=== PATIENT | male | born 1960 | race Caucasian/White ===

== ENCOUNTER 2020-05-25 20:48 | Inpatient (IN) | payer OTHER ==
[~2020-05-25] VITALS: Ht 193 cm; Wt 77.1 kg
[~2020-05-25 20:48] MED LIST: BUSP10 PO; CITA20 PO; HEARTBURN TREAT15 MG PO
[2020-05-25] MEDS ORDERED: NEURONTIN300 MG PO (21:03)
[2020-05-25] MEDS ORDERED: HYDROCODONE-AC1 EAC9 PO (21:03)
[2020-05-25] MEDS ORDERED: ASPI325 PO (21:04)
[2020-05-25 23:17] LABS: BASOPHILS ABSOLUTE AUTO 0.03 K/mm3 (0.00-0.23); BASOPHILS PERCENT AUTO 0 % (0-2); EOSINOPHILS ABSOLUTE AUTO 0.01 K/mm3 (0.00-0.68); EOSINOPHILS PERCENT AUTO 0 % (0-6); Hematocrit 39.1 % (37.0-53.0); Hemoglobin 13.3 g/dL (13.5-17.5); IMMATURE GRAN ABSOLUTE AUTO 0.08 K/mm3 (0.00-0.10); IMMATURE GRAN PERCENT AUTO 1 % (0-1); LYMPHOCYTES ABSOLUTE AUTO 0.81 K/mm3 (0.84-5.20); LYMPHOCYTES PERCENT AUTO 5 % (21-46); MONOCYTES ABSOLUTE AUTO 1.83 K/mm3 (0.16-1.47); MONOCYTES PERCENT AUTO 10 % (4-13); Mean Corpuscular HGB 34.4 pg (26.0-34.0); Mean Corpuscular Volume 101 fL (80-100); Mean Platelet Volume 9.5 fL (9.1-12.4); NEUTROPHILS ABSOLUTE AUTO 14.88 K/mm3 (1.96-9.15); NEUTROPHILS PERCENT AUTO 84 % (41-73); Platelet Count 197 K/mm3 (150-400); RDW Coefficient Variation 11.5 % (11.7-14.2); RDW Standard Deviation 43.1 fL (35.1-46.3); Red Blood Cell Count 3.87 M/mm3 (4.30-5.90); White Blood Cell Count 17.64 K/mm3 (4.00-11.30)
[2020-05-25 23:33] LABS: International Normalized Ratio 0.97; Prothrombin Time Results 10.4 Sec (9.7-11.5)
[2020-05-25 23:37] LABS: Alanine Aminotransfer (ALT/SGP 13 U/L (12-78); Albumin/Globulin Ratio 0.8 (0.8-1.8); Alk Phos 80 U/L (50-136); Anion Gap 9 mmol/L (6-16); Aspartate Aminotrans (AST/SGOT 12 U/L (12-37); Bilirubin, Total 0.6 mg/dL (0.1-1.0); Blood Urea Nitrogen 13 mg/dL (8-24); Bun/Creatinine Ratio 22.5 (12.0-20.0); CO2, Blood 24 mmol/L (21-32); Calcium, Blood 9.6 mg/dL (8.5-10.1); Chloride, Blood 101 mmol/L (98-108); Creatinine, Blood 0.58 mg/dL (0.60-1.20); Globulin, Blood 3.9 g/dL (2.2-4.0); Glomerular Filtration Rate >60 (60-); Glucose, Blood 109 mg/dL (70-99); Potassium, Blood 4.1 mmol/L (3.5-5.5); Sodium, Blood 134 mmol/L (136-145); Total Protein, Blood 6.9 g/dL (6.4-8.2); Troponin I <0.015 ng/mL (0.000-0.040)
[2020-05-26 00:08] LABS: Source, Urine Clean Catch
[2020-05-26 00:12] LABS: Appearance, Urine Clear (Clear); Bilirubin, Urine Neg (Neg); Blood, Urine Neg (Neg); Color, Urine Amber (P-Yellow); Glucose Qualitative, Urine Neg (Neg); Ketones, Urine 2+ (Neg); Leukocyte Esterase, Urine Neg (Neg); Nitrite, Urine Neg (Neg); Protein, Urine 1+ (Neg); Specific Gravity, Urine 1.025 (1.003-1.022); Urobilinogen, Urine 2+ (Normal)
[2020-05-26 01:04] LABS: Adenovirus Not Detected (NOT DETECT); Bordetella pertussis Not Detected (NOT DETECT); Chlamydophila pneumoniae Not Detected (NOT DETECT); Coronavirus 229E Not Detected (NOT DETECT); Coronavirus HKU1 Not Detected (NOT DETECT); Coronavirus NL63 Not Detected (NOT DETECT); Coronavirus OC43 Not Detected (NOT DETECT); Human Metapneumovirus Not Detected (NOT DETECT); Human Rhinovirus/Enterovirus Not Detected (NOT DETECT); Influenza A/2009-H1 Not Detected (NOT DETECT); Influenza A/H1 Not Detected (NOT DETECT); Influenza A/H3 Not Detected (NOT DETECT); Influenza B Not Detected (NOT DETECT); Mycoplasma pneumoniae Not Detected (NOT DETECT); Parainfluenza Virus 1 Not Detected (NOT DETECT); Parainfluenza Virus 2 Not Detected (NOT DETECT); Parainfluenza Virus 3 Not Detected (NOT DETECT); Parainfluenza Virus 4 Not Detected (NOT DETECT); Respiratory Syncytial Virus Not Detected (NOT DETECT); SARS-Cov-2 (COVID-19), BioFire Not Detected (NOT DETECT)
--- NOTE | 2020-05-26 05:14 | NUR ---
SUMMARY PT ARRIVED TO FLOOR IN NO DISTRESS. PT STATES HE HAS BEEN BEDREST W/ WHEELCHAIR USE FOR PAST 3 WEEKS. PT STATES HIS NEUROPATHY HAS INCREASED THIS LAST MONTH. PT CURRENTLY BIOX IS >90% ON ROOM AIR. PT DOES GET SOB W/ EXERTION. PT USING URINAL ON OWN. PT CURRENTLY WATCHING TV AND BREATHING EASY. CALL LIGHT IN REACH.
[2020-05-26 11:14] LABS: BASOPHILS ABSOLUTE AUTO 0.02 K/mm3 (0.00-0.23); BASOPHILS PERCENT AUTO 0 % (0-2); EOSINOPHILS ABSOLUTE AUTO 0.02 K/mm3 (0.00-0.68); EOSINOPHILS PERCENT AUTO 0 % (0-6); Hematocrit 34.6 % (37.0-53.0); Hemoglobin 11.7 g/dL (13.5-17.5); IMMATURE GRAN ABSOLUTE AUTO 0.07 K/mm3 (0.00-0.10); IMMATURE GRAN PERCENT AUTO 0 % (0-1); LYMPHOCYTES ABSOLUTE AUTO 1.39 K/mm3 (0.84-5.20); LYMPHOCYTES PERCENT AUTO 8 % (21-46); MONOCYTES PERCENT AUTO 9 % (4-13); Mean Corpuscular HGB 34.8 pg (26.0-34.0); Mean Corpuscular HGB Conc 33.8 g/dL (31.5-36.5); Mean Corpuscular Volume 103 fL (80-100); Mean Platelet Volume 9.7 fL (9.1-12.4); NEUTROPHILS ABSOLUTE AUTO 14.02 K/mm3 (1.96-9.15); NEUTROPHILS PERCENT AUTO 82 % (41-73); Platelet Count 161 K/mm3 (150-400); RDW Coefficient Variation 11.6 % (11.7-14.2); RDW Standard Deviation 43.9 fL (35.1-46.3); Red Blood Cell Count 3.36 M/mm3 (4.30-5.90); White Blood Cell Count 17.02 K/mm3 (4.00-11.30)
[2020-05-26 11:34] LABS: Alanine Aminotransfer (ALT/SGP 7 U/L (12-78); Albumin, Blood 2.4 g/dL (3.4-5.0); Albumin/Globulin Ratio 0.7 (0.8-1.8); Alk Phos 64 U/L (50-136); Anion Gap 9 mmol/L (6-16); Aspartate Aminotrans (AST/SGOT 8 U/L (12-37); Bilirubin, Total 0.4 mg/dL (0.1-1.0); Blood Urea Nitrogen 12 mg/dL (8-24); Bun/Creatinine Ratio 22.3 (12.0-20.0); CO2, Blood 24 mmol/L (21-32); Chloride, Blood 104 mmol/L (98-108); Creatinine, Blood 0.54 mg/dL (0.60-1.20); Globulin, Blood 3.3 g/dL (2.2-4.0); Glomerular Filtration Rate >60 (60-); Glucose, Blood 105 mg/dL (70-99); Potassium, Blood 3.5 mmol/L (3.5-5.5); Sodium, Blood 137 mmol/L (136-145); Total Protein, Blood 5.7 g/dL (6.4-8.2)
--- NOTE | 2020-05-26 17:02 | NUR ---
SHIFT SUMMARY PT HAD SOFT TOUCH CALL LIGHT IN REACH. USES APPROPRIOTELY. SOCIAL SERVICE CONSULT PLACED & TAX EXPERT UPDATED ON PT POSSIBLE NEED FOR SENIOR CORE JAVA DEVELOPER CARE PER SISTER, HONG. OT & PT ORDERED. PT CONTINUES TO HAVE PROFOUND WEAKNESS TO ALL EXTREMETIES. REPOSITIONED T/O DAY. PT CONT WITH URINAL AT BEDSIDE. NO BM THIS SHIFT. SUPERVISOR SHUTTLE PREPARATION, DR. LYLE IN TO SEE PT. SPUTUM SAMPLE COLLECTED. FLUTTER VALVE GIVEN TO PT. REPEAT CHEST XR TO BE DONE TOMORROW FOR COMPARISON. TB SEND OUT BLOOD SAMPLES TAKEN & SENT. PT COOPERATIVE AND POLITE T/O SHIFT. NO OTHER CHANGES IN ASSESSMENT AT THIS TIME. VS REVIEWED. SLIGHT TEMP T/O DAY 99-100.0. WILL CONINUE TO MONITOR UNTIL TURNOVER IS COMPLETE.
[2020-05-27 02:47] LABS: Vancomycin, Trough 8.9 ug/mL (5.0-10.0)
--- NOTE | 2020-05-27 05:14 | NUR ---
SUMMARY: PT A/OX4, USES SOFT TOUCH CALL LIGHT APPROPRIATELY AND SPECIFIES NEEDS. HE'S PROFOUNDLY WEAK TO ALL EXT'S AND NONAMBULATORY R/T NEUROPATHY. TURN SCHEDULE MAINTAINED AND PT USES URINAL INDEPENDENTLY IN BED. IV AT TKVO BETWEEN MULTIPLE ABX'S RECIEVED T/O NOCTE. PULM CONSULTING, REPEAT CXR TODAY FOR COMPARISON AND TB SEND OUT LABS PENDING. RESPS E/U ON RA AND NO S/S SOB OR RESP DISTRESS THIS SHIFT. PT DENIED PAIN/COMPLAINTS. VSS/AFEBRILE, NO ACUTE CHANGES. PT WILL LIKELY NEED GROUP HOME CARE AND MAY D/C TO [facility]. WCTM AND REPORT TO DAY RN.
--- NOTE | 2020-05-27 17:22 | NUR ---
SHIFT SUMMARY PT A/O X4; PLEASANT AND COOPERATIVE WITH CARE. 2 PERSON MAX ASSIST. MOSTLY IMMOBILE AT BASELINE. USES THE URINAL IN THE BED AND THE BED BOYLE. GETS INTO PERSONAL WHEELCHAIR USING A SLIDING BOARD. SISTER AT BEDSIDE. USES A SOFT TOUCH CALL LIGHT AND CALLS APPROPRIATELY. VSS; DAMON.
[2020-05-27 19:44] LABS: Vancomycin, Trough 19.7 ug/mL (5.0-10.0)
--- NOTE | 2020-05-28 05:25 | NUR ---
SUMMARY: A/OX4, SPECIFIES NEEDS W/SOFT TOUCH CALL LIGHT AND COOPERATIVE W/CARE. HE'S A 1-2P MAX REPOSITION IN BED W/PROFOUND WEAKNESS PERSISTING. PT/OT WORKED W/HIM DURING DAY SHIFT USING SLIDE BOARD TO T/F TO W/C BUT HE WASN'T OOB THIS SHIFT. HE USES URINAL IN BED AND ATTEMPTED TO USE BEDPAN. LINEN, GOWN AND ATTENDS CHANGED PRN FOR SOME SPILLING OF URINE WHILE USING URINAL INDEPENDENTLY. HE DENIED PAIN, SOB, RESP DISTRESS AND ALL OTHER COMPLAINTS. PT REMAIN IN ISO FOR R/O TB. IV AT TKVO AND MULTIPLE IV ABX WERE RECIEVED T/O NOCTE. RESPS E/U ON RA W/SPO2 WNL. NO ACUTE CHANGES, VSS AND AFEBRILE. WCTM AND REPORT TO DAY RN.
[2020-05-28 05:43] LABS: BASOPHILS ABSOLUTE AUTO 0.01 K/mm3 (0.00-0.23); BASOPHILS PERCENT AUTO 0 % (0-2); EOSINOPHILS ABSOLUTE AUTO 0.29 K/mm3 (0.00-0.68); EOSINOPHILS PERCENT AUTO 3 % (0-6); Hematocrit 32.1 % (37.0-53.0); IMMATURE GRAN ABSOLUTE AUTO 0.03 K/mm3 (0.00-0.10); IMMATURE GRAN PERCENT AUTO 0 % (0-1); LYMPHOCYTES ABSOLUTE AUTO 1.52 K/mm3 (0.84-5.20); LYMPHOCYTES PERCENT AUTO 17 % (21-46); MONOCYTES ABSOLUTE AUTO 1.25 K/mm3 (0.16-1.47); MONOCYTES PERCENT AUTO 14 % (4-13); Mean Corpuscular HGB 34.6 pg (26.0-34.0); Mean Corpuscular HGB Conc 34.3 g/dL (31.5-36.5); Mean Corpuscular Volume 101 fL (80-100); Mean Platelet Volume 10.3 fL (9.1-12.4); NEUTROPHILS ABSOLUTE AUTO 5.89 K/mm3 (1.96-9.15); NEUTROPHILS PERCENT AUTO 66 % (41-73); Platelet Count 179 K/mm3 (150-400); RDW Coefficient Variation 11.4 % (11.7-14.2); RDW Standard Deviation 42.1 fL (35.1-46.3); Red Blood Cell Count 3.18 M/mm3 (4.30-5.90); White Blood Cell Count 8.99 K/mm3 (4.00-11.30)
[2020-05-28 06:03] LABS: Anion Gap 6 mmol/L (6-16); Blood Urea Nitrogen 9 mg/dL (8-24); Bun/Creatinine Ratio 18.4 (12.0-20.0); CO2, Blood 25 mmol/L (21-32); Calcium, Blood 8.8 mg/dL (8.5-10.1); Chloride, Blood 104 mmol/L (98-108); Creatinine, Blood 0.49 mg/dL (0.60-1.20); Glomerular Filtration Rate >60 (60-); Glucose, Blood 96 mg/dL (70-99); Potassium, Blood 3.5 mmol/L (3.5-5.5); Sodium, Blood 135 mmol/L (136-145)
[2020-05-28 11:37] LABS: Vancomycin, Trough 19.3 ug/mL (5.0-10.0)
[2020-05-28 15:07] LABS: QUANTIFERON MITOGEN VALUE 5.74 IU/mL (.); QUANTIFERON NIL VALUE 0.11 IU/mL (.); QUANTIFERON TB2 AG VALUE 0.11 IU/mL (.); QUANTIFERON-TB GOLD PLUS Negative (Negative)
--- NOTE | 2020-05-28 18:19 | NUR ---
SHIFT SUMMARY PT A/O X4 AND PLEASANT. HE IS A MAX 1/2 ASSIST TO TURN OR GET UP TO HIS WHEELCHAIR. HE DID NOT GET UP TO HIS WHEELCHAIR TODAY. USES THE URINAL IN BED AND THE BEDPAN. FREQUENT LOOSE BM'S TODAY. IMMODIUM ORDERED. PULMONARY CONSULT TODAY. NPO AT MIDNIGHT FOR BRONCOSCOPY TOMORROW. VSS; DAMON.
--- NOTE | 2020-05-29 12:51 | NUR ---
05/29/20 1251 Wiliam Leija 3-LEAD EKG REVIEWED WITH PHYSICIAN PRIOR TO START OF PROCEDURE.Patient to ENDO 2History, Chart, Medications and Allergies reviewed before start of procedure.MONITOR INTACT WITH CONTINUOUS PULSE OXIMETRY AND INTERMITTENT BP.O2 VIA N/C INTACT THROUGHOUT SEDATION/PROCEDURE.
--- NOTE | 2020-05-29 14:09 | NUR ---
1400- DR ROMAN CALLED TO NOTIFY HIM THAT PT O2SAT 88-90% ON ROOM AIR, AFTER DUONEB. PER DR ROMAN, OKAY FOR PT TO BE ON O2.02 AT 2LNC PT SATING LOW 90'S. PT ABLE TO SUCTION SELF AND CLEAR OWN AIRWAY W/O SUCTION. PT TRANSPORTED VIA GURNEY BACK TO MEDICAL FLOOR.
--- NOTE | 2020-05-29 19:24 | NUR ---
SHIFT SUMMARY: PATIENT A&O X4; CALM AND COOPERATIVE WITH CARE. MEDICATED FOR PAIN PER EMAR. BRONCHOSCOPY TODAY; PATIENT TOLERATED WELL; VSS; PT ON ROOM AIR. R/O TUBERCULOSIS COMPLETE. IV ABX CONTINUING. REPORT GIVEN TO ONCOMING RN.
--- NOTE | 2020-05-30 03:54 | NUR ---
SHIFT SUMMARY PATIENT HAD NO ACUTE CHANGES OBSERVED. AXOX 4 AND BEDREST. USES URINAL AND BED BOYLE. PIV REMAINS INTACT. IV ABXS INFUSED. VSS/AFEBRILE. DENIES PAIN, SOB, AND N/V. TAKES MEDICATION WHOLE WITH WATER. COOPERATIVE WITH CARE. CALL LIGHT IN REACH. BED IN LOWEST POSITION. WILL CONTINUE TO MONITOR UNTIL DAY SHIFT NURSE ASSUMES CARE.
[2020-05-30 08:20] LABS: Hematocrit 33.7 % (37.0-53.0); Hemoglobin 11.6 g/dL (13.5-17.5); Mean Corpuscular HGB 34.5 pg (26.0-34.0); Mean Corpuscular HGB Conc 34.4 g/dL (31.5-36.5); Mean Corpuscular Volume 100 fL (80-100); Mean Platelet Volume 9.3 fL (9.1-12.4); Platelet Count 232 K/mm3 (150-400); RDW Coefficient Variation 11.4 % (11.7-14.2); RDW Standard Deviation 41.8 fL (35.1-46.3); Red Blood Cell Count 3.36 M/mm3 (4.30-5.90); White Blood Cell Count 8.15 K/mm3 (4.00-11.30)
[2020-05-30 08:33] LABS: Anion Gap 7 mmol/L (6-16); Blood Urea Nitrogen 9 mg/dL (8-24); Bun/Creatinine Ratio 17.6 (12.0-20.0); CO2, Blood 26 mmol/L (21-32); Chloride, Blood 104 mmol/L (98-108); Creatinine, Blood 0.51 mg/dL (0.60-1.20); Glomerular Filtration Rate >60 (60-); Glucose, Blood 93 mg/dL (70-99); Potassium, Blood 3.8 mmol/L (3.5-5.5); Sodium, Blood 137 mmol/L (136-145)
[2020-05-30 11:41] LABS: Vancomycin, Trough 22.5 ug/mL (5.0-10.0)
--- NOTE | 2020-05-30 19:32 | NUR ---
SHIFT SUMMARY: NO ACUTE CHANGES TO REPORT THIS SHIFT. PT A&O; CALM AND COOPERATIVE WITH CARE. MEDICATED FOR BACK PAIN PER EMAR. PT ON BEDREST; BEDPAN FOR BM; URINAL FOR VOIDING. PT/OT FOLLOWING. IV ABX CONTINUING. REPORT GIVEN TO ONCOMING RN.
--- NOTE | 2020-05-31 06:20 | NUR ---
SHIFT SUMMARY PT IS A 60 Y/O MALE, ADMITTED FOR PNA. HE IS A&O X 4, ON BEDREST D/T INCREASED WEAKNESS. NO COMPLAINTS OF PAIN, NAUSEA OR SOB DURING THE NIGHT. VITAL SIGNS STABLE. PT SLEPT WELL THROUGH THE NIGHT. NO ACUTE CHANGES IN PT CONDITION NOTED. WILL CONTINUE TO MONITOR AND TREAT PER EMAR UNTIL HAND OFF TO DAY SHIFT RN.
--- NOTE | 2020-05-31 16:59 | NUR ---
Shift Summary A/Ox4, pleasant and cooperative with care. Pt states baseline wheelchair for mobility. Speech evaluation completed today (see new orders). Medicated x 1 for pain with good relief. Independent with urinal at bedside, calls appropriately for needs. Appetite is great. Lung sounds are clear on R side, diminished on all left lobes. Breathing is equal and unlabored. No new concerns. Will continue to monitor.
[2020-06-01 05:55] LABS: Vancomycin, Trough 13.6 ug/mL (5.0-10.0)
--- NOTE | 2020-06-01 06:00 | NUR ---
SHIFT SUMMARY PT IS A 60 Y/O MALE, ADMITTED FOR PNA AND WEAKNESS. HE IS A&O X 4, ON BEDREST. CURRENTLY AWAITING RESULTS ON RECENT BRONCHOSCOPY SPECIMENS. PT WAS MEDICATED ONCE FOR BACK PAIN WITH PRN OXYCODONE. NO COMPLAINTS OF NAUSEA OR SOB. VITAL SIGNS STABLE. PT SLEPT WELL THROUGH THE NIGHT. NO ACUTE CHANGES IN PT CONDITION NOTED. WILL CONTINUE TO MONITOR AND TREAT PER EMAR UNTIL HAND OFF TO DAY SHIFT RN.
--- NOTE | 2020-06-01 15:51 | NUR ---
Shift Summary Patient c/o of possibly aspirating with water and coffee. When assessing how patient drinks these two, it appears patient was using straws. Offered to try nectar thick liquids, patient declined. Patient did not c/o aspiration with other thin liquids (milk, ensure, etc..) when not using straw. Recommended no straw for any thin liquids. Will pass this on to oncoming RN so this can be relayed to speech therapist for further evaluation. Dr. Holliday is aware of patient's complaint. L/S audible and clear throughout which is an improvement from yesterday. No other acute changes, will continue to monitor.
--- NOTE | 2020-06-02 05:54 | NUR ---
SHIFT SUMMARY PT IS A 60 Y/O MALE, ADMITTED FOR PNA AND CURRENTLY AWAITING RESULTS OF A BRONCHOSCOPY BIOPSY. HE IS A&O X 4, WITH EXTREME WEAKNESS, AND CURRENTLY ON BEDREST. HE WAS MEDICATED ONCE AT HS FOR BACK PAIN WITH PRN PERCOCET. NO C/O NAUSEA OR SOB. VITAL SIGNS STABLE. PT SLEPT WELL THROUGH THE NIGHT. NO ACUTE CHANGES IN PT CONDITION NOTED. WILL CONTINUE TO MONITOR AND TREAT PER EMAR UNTIL HAND OFF TO DAY SHIFT RN.
[2020-06-02] MEDS ORDERED: GUAI600T33 PO (10:58)
[2020-06-02] MEDS ORDERED: Nicoderm Cq1 EAC1 TOP (10:58)
[2020-06-02] MEDS ORDERED: AMOCLA500 PO (10:58)
[2020-06-02] MEDS ORDERED: Florastor250 MG PO (11:00)
== END 2020-06-02 14:35 | DRG 871 ==
LOC: ER 20:48 → MEDS 05-26 03:04 → ENPENDDIS 06-02 10:42 → MEDS 06-02 14:35
PROVIDERS: Internal Medicine; Internal Medicine Critical Care Medicine; Pharmacist; Physician Assistant; ADMIT Internal Medicine
PROC: 0B978ZX Drainage of Left Main Bronchus, Via Natural or Artificial Opening Endoscopic, Diagnostic (ICD-10-PCS; principal; 2020-05-29 12:30)
DX: A41.9 Sepsis, unspecified organism (principal); J96.01 Acute respiratory failure with hypoxia; J18.8 Other pneumonia, unspecified organism; E87.1 Hypo-osmolality and hyponatremia; Z20.828 Contact with and (suspected) exposure to other viral communicable diseases; K21.9 Gastro-esophageal reflux disease without esophagitis; F17.210 Nicotine dependence, cigarettes, uncomplicated; G62.1 Alcoholic polyneuropathy; Z79.82 Long term (current) use of aspirin; F10.21 Alcohol dependence, in remission; Z99.3 Dependence on wheelchair; J43.9 Emphysema, unspecified; D63.8 Anemia in other chronic diseases classified elsewhere
CPT/HCPCS: 0202U; 36415; 71045; 71260; 80048; 80053; 80202; 82140; 83605; 83880; 84484; 85025; 85027; 85610; 85730; 86480; 87040; 87070; 87086; 87205; 88108; 88312; 92610; 93005; 93010; 94640; 94667; 94760; 96361; 96365; 96366; 97110; 97112; 97161; 97166; 97530; 97535; 99285-25; A9270; A9270-GY; J0171; J0295; J0456; J0696; J1644; J2250; J3010; J3370; J7050; J7120; Q9967; U0003

== ENCOUNTER → 2020-06-13 | Outpatient (CLI) | payer OTHER ==
[~2020-06-13] MED LIST changes: +ACET325 PO; +ALPHA LIPOIC ACID PO; +AMIT50 PO; +AMOCLA500 PO; +ASPI325 PO; +Acetyl L-Carni500 MG PO; +DOCU100 PO; +Florastor250 MG PO; +GUAI600T33 PO; +HYDROCODONE-AC1 EAC9 PO; +IPRAT-ALBUT 0.5-3 ML INH; +NEURONTIN300 MG PO; +Nicoderm Cq1 EAC1 TOP; +VISBIOME PROBIOTIC PO; +VITAMIN D5000 UNIT PO; +VITAMIN E-20200 UNIT PO; +Vitamin B Comple1 EA PO
[2020-06-15 10:08] LABS: HIV SCREEN 4TH GENERATION WRFX Non Reactive (Non Reactive)
[2020-06-17 03:08] LABS: METHYLMALONIC ACID, SERUM 96 nmol/L (0-378)
[2020-06-17 18:07] LABS: HEPATITIS C QUANTITATION HCV Not Detected IU/mL (.)
[2020-06-22 17:10] LABS: ANA DIRECT Negative (Negative); ANTIMYELOPEROXIDASE (MPO) ABS <9.0 U/mL (0.0-9.0); ANTIPROTEINASE 3 (PR-3) ABS <3.5 U/mL (0.0-3.5); ATYPICAL PANCA <1:20 titer (Neg:<1:20); CYTOPLASMIC (C-ANCA) <1:20 titer (Neg:<1:20); PERINUCLEAR (P-ANCA) <1:20 titer (Neg:<1:20)
== END | disposition home or self-care (01) ==
LOC: EDSTATUS 09:21 → LAB 17:34 → LAB UVN 17:34
PROVIDERS: Student in an Organized Health Care Education/Training Program
DX: G62.1 Alcoholic polyneuropathy (principal)
CPT/HCPCS: 83520; 83883; 83921; 85651; 86140; 86256; 87389; 87522

== ENCOUNTER 2020-07-03 21:58 | Inpatient (IN) | payer OTHER ==
[~2020-07-03] VITALS: Ht 188 cm; Wt 72.8 kg
[~2020-07-03 21:58] MED LIST changes: -ACET325 PO; -ALPHA LIPOIC ACID PO; -AMIT50 PO; -Acetyl L-Carni500 MG PO; -DOCU100 PO; -IPRAT-ALBUT 0.5-3 ML INH; -VISBIOME PROBIOTIC PO; -VITAMIN D5000 UNIT PO; -VITAMIN E-20200 UNIT PO; -Vitamin B Comple1 EA PO
[2020-07-03 22:20] LABS: Calcium, Ionized (POC) 1.25 mmol/L (1.10-1.46); Chloride (POC) 92 mmol/L (98-108); Creatinine (POC) 0.5 mg/dL (0.8-1.3); Glucose (ISTAT POC) 154 mg/dL (70-99); Hemoglobin (POC) 15.6 g/dL (13.5-17.5); Potassium (POC) 4.3 mmol/L (3.5-5.5); Sodium (POC) 128 mmol/L (135-148); Total CO2 (POC) 25 mmol/L (21-32)
[2020-07-03 22:28] LABS: BASOPHILS ABSOLUTE AUTO 0.02 K/mm3 (0.00-0.23); BASOPHILS PERCENT AUTO 0 % (0-2); EOSINOPHILS ABSOLUTE AUTO 0.14 K/mm3 (0.00-0.68); EOSINOPHILS PERCENT AUTO 1 % (0-6); Hematocrit 43.7 % (37.0-53.0); Hemoglobin 14.3 g/dL (13.5-17.5); IMMATURE GRAN ABSOLUTE AUTO 0.06 K/mm3 (0.00-0.10); IMMATURE GRAN PERCENT AUTO 1 % (0-1); LYMPHOCYTES ABSOLUTE AUTO 1.66 K/mm3 (0.84-5.20); LYMPHOCYTES PERCENT AUTO 13 % (21-46); MONOCYTES ABSOLUTE AUTO 1.13 K/mm3 (0.16-1.47); MONOCYTES PERCENT AUTO 9 % (4-13); Mean Corpuscular HGB 32.2 pg (26.0-34.0); Mean Corpuscular HGB Conc 32.7 g/dL (31.5-36.5); Mean Corpuscular Volume 98 fL (80-100); Mean Platelet Volume 9.4 fL (9.1-12.4); NEUTROPHILS PERCENT AUTO 76 % (41-73); Platelet Count 254 K/mm3 (150-400); RDW Coefficient Variation 11.5 % (11.7-14.2); RDW Standard Deviation 42.3 fL (35.1-46.3); Red Blood Cell Count 4.44 M/mm3 (4.30-5.90); White Blood Cell Count 12.81 K/mm3 (4.00-11.30)
[2020-07-03 22:38] LABS: PO2 Arterial 398 mmHg (80-100); pH Blood Arterial 7.25 (7.35-7.45)
[2020-07-03 22:46] LABS: Alanine Aminotransfer (ALT/SGP 12 U/L (12-78); Albumin, Blood 3.1 g/dL (3.4-5.0); Albumin/Globulin Ratio 0.7 (0.8-1.8); Alk Phos 116 U/L (50-136); Anion Gap 4 mmol/L (6-16); Aspartate Aminotrans (AST/SGOT 25 U/L (12-37); Bilirubin, Total 0.4 mg/dL (0.1-1.0); Blood Urea Nitrogen 10 mg/dL (8-24); Bun/Creatinine Ratio 21.9 (12.0-20.0); CO2, Blood 28 mmol/L (21-32); Calcium, Blood 9.2 mg/dL (8.5-10.1); Chloride, Blood 96 mmol/L (98-108); Creatinine, Blood 0.46 mg/dL (0.60-1.20); Globulin, Blood 4.3 g/dL (2.2-4.0); Glomerular Filtration Rate >60 (60-); Glucose, Blood 158 mg/dL (70-99); Potassium, Blood 4.3 mmol/L (3.5-5.5); Sodium, Blood 128 mmol/L (136-145); Total Protein, Blood 7.4 g/dL (6.4-8.2); Troponin I <0.015 ng/mL (0.000-0.040)
[2020-07-03 23:20] LABS: Influenza A, PCR Negative (NEGATIVE); Influenza B, PCR Negative (NEGATIVE); Resp Syncytial Virus, PCR Negative (NEGATIVE); SARS-Cov-2 (COVID-19) PCR, MMC Negative (NEGATIVE)
[2020-07-04 01:10] LABS: Source, Urine Catheter
[2020-07-04 01:24] LABS: Appearance, Urine Clear (Clear); Bilirubin, Urine Neg (Neg); Blood, Urine Neg (Neg); Color, Urine Pale Yellow (P-Yellow); Glucose Qualitative, Urine Neg (Neg); Ketones, Urine Neg (Neg); Leukocyte Esterase, Urine Neg (Neg); Nitrite, Urine Neg (Neg); Protein, Urine Neg (Neg); Urobilinogen, Urine NORM (Normal)
[2020-07-04] MEDS ORDERED: IPRAT-ALBUT 0.5-3 ML INH (01:30)
[2020-07-04] MEDS ORDERED: ACET325 PO (01:31)
[2020-07-04] MEDS ORDERED: VISBIOME PROBIOTIC PO (01:37)
[2020-07-04] MEDS ORDERED: VITAMIN E-20200 UNIT PO (01:38)
[2020-07-04] MEDS ORDERED: VITAMIN D5000 UNIT PO (01:39)
[2020-07-04] MEDS ORDERED: Vitamin B Comple1 EA PO (01:40)
[2020-07-04] MEDS ORDERED: AMIT50 PO (01:41)
[2020-07-04] MEDS ORDERED: DOCU100 PO (01:41)
[2020-07-04] MEDS ORDERED: Acetyl L-Carni500 MG PO (01:43)
[2020-07-04] MEDS ORDERED: ALPHA LIPOIC ACID PO (01:43)
[2020-07-04 01:47] LABS: U Amphetamine Screen Not Detected; U Barbituate Screen Not Detected; U Benzodiazapine Screen Not Detected; U Buprenorphine Screen Not Detected; U Cannabinoids Screen Not Detected; U Cocaine Screen Not Detected; U Methadone Screen Not Detected; U Methamphetamine Screen Not Detected; U Opiates Screen Not Detected; U Oxycodone Screen Not Detected; U Phencyclidine Screen Not Detected; U Propoxyphene Screen Not Detected
--- NOTE | 2020-07-04 02:00 | NUR ---
PT TO ICU 10 VIA SUSYRGARRICK WITH ED RN AND RT @ 0045, PT UNRESPONSIVE TO VERBAL AND PAINFUL STIMULI, REPORT FROM ED RN THAT PT RECEIVED VECURONIUM PRIOR TO ARRIVAL TO UNIT. PROPOFOL INITIATED UPON ARRIVAL, SEE FLOWSHEET FOR TITRATIONS. MONITOR SHOWS SINUS SINUS RHYTHM HR 70'S-80'S, PT HYPOTENSIVE ON LEVO GTT. DALTON IN PLACE DRAINING YELLOW URINE. OG IN PLACE, WITH BILE DRAINAGE.
--- NOTE | 2020-07-04 02:24 | NUR ---
RAPR-ROUND STYKER COOLING WRAPS APPLIED TO BILAT LEGS AND ABD/CHEST, TTM INITIATED @ 0220 FOR TEMPERATURE GOAL OF 96.8. RECTAL TEMP PROBE IN PLACE SHOWING CORE TEMPERATURE OF 97.7.
--- NOTE | 2020-07-04 03:01 | NUR ---
ICE PACKS APPLIED TO GROIN AND NECK.
[2020-07-04 03:20] LABS: Creatine Kinase MB 2.9 ng/mL (0.0-3.6); Creatine Kinase MB Index 0.9 (0.0-4.0)
[2020-07-04 03:33] LABS: D-Dimer, Quantitative 21.17 mg/L FEU (0.00-0.52); Fibrinogen 427 mg/dL (170-430); International Normalized Ratio 1.06; Prothrombin Time Results 11.3 Sec (9.7-11.5)
[2020-07-04 05:42] LABS: PCO2 Arterial 33.6 mmHg (35-45); PO2 Arterial 71.8 mmHg (80-100); pH Blood Arterial 7.46 (7.35-7.45)
--- NOTE | 2020-07-04 07:00 | NUR ---
SHIFT SUMMARY PT REMAINS INTUBATED AND SEDATED, VENT SET TO 16/600/5/35%, EARLY THIS MORNING PT BECAME MORE RESPONSIVE, FOLLOWING COMMANDS, ANSWERING YES/NO QUESTIONS, SHAKES HEAD "YES" TO PAIN. DISCUSSED WITH DR VICK, HYPOTHERMIA PROTOCOL DC'D AND NEW ORDER FENTANYL PLACED. UPDATED PTS SISTER HONG ON PTS STATUS. HONG WAS VERY EMOTIONAL AND TEARFUL OVER THE PHONE, REPORTS PT HAS HAD A "LONG COUPLE OF MONTHS" AND DISCUSSIONS OF HOSPICE HAVE BEEN STARTED. HONG REPORTS THAT PT HAD RECENTLY DECIDED HE DID NOT WANT INTUBATION OR CPR. OHNG STS SHE WILL CALL [facility] TO GET UPDATED POLST SENT TO HOSPITAL. REPORT GIVEN TO JOSE RODRIGUEZ.
[2020-07-04 07:03] LABS: BASOPHILS ABSOLUTE AUTO 0.01 K/mm3 (0.00-0.23); BASOPHILS PERCENT AUTO 0 % (0-2); EOSINOPHILS ABSOLUTE AUTO 0.23 K/mm3 (0.00-0.68); EOSINOPHILS PERCENT AUTO 2 % (0-6); Hematocrit 37.2 % (37.0-53.0); Hemoglobin 12.4 g/dL (13.5-17.5); IMMATURE GRAN ABSOLUTE AUTO 0.05 K/mm3 (0.00-0.10); IMMATURE GRAN PERCENT AUTO 0 % (0-1); LYMPHOCYTES ABSOLUTE AUTO 1.77 K/mm3 (0.84-5.20); LYMPHOCYTES PERCENT AUTO 14 % (21-46); MONOCYTES ABSOLUTE AUTO 1.05 K/mm3 (0.16-1.47); MONOCYTES PERCENT AUTO 8 % (4-13); Mean Corpuscular HGB 32.3 pg (26.0-34.0); Mean Corpuscular HGB Conc 33.3 g/dL (31.5-36.5); Mean Corpuscular Volume 97 fL (80-100); Mean Platelet Volume 9.2 fL (9.1-12.4); NEUTROPHILS ABSOLUTE AUTO 9.45 K/mm3 (1.96-9.15); NEUTROPHILS PERCENT AUTO 75 % (41-73); Platelet Count 251 K/mm3 (150-400); RDW Coefficient Variation 11.7 % (11.7-14.2); RDW Standard Deviation 41.5 fL (35.1-46.3); Red Blood Cell Count 3.84 M/mm3 (4.30-5.90); White Blood Cell Count 12.56 K/mm3 (4.00-11.30)
--- NOTE | 2020-07-04 07:15 | NUR ---
ASSUMED CARE: REPORT RECEIVED FROM SHELBY Bravo RN. ASSUMED CARE OF THIS PT AT APPROX 0700. ON ASSESSMENT, THE PT INTUBATED W/ 8.0 ETT, NOTED TO BE 29.0 CM AT LIPS. HE IS SEDATED W/ PROPOFOL, TITRATION DOC IN FLOWSHEET. HE APPEARS COMFORTABLE AT THIS TIME. LS ARE COARSE T/O, BUT CLEAR SOME AFTER ETT SUCTIONING. VENT SETTINGS: AC 16/600/5/35% W/ O2 SATS > 92%. MONITOR SHOWS SR W/ HR 80s, BP STABLE CURRENTLY W/ LEVOPHED DRIP, TITRATION DOC IN FLOWSHEET. OGT TO LIS W/ SCANT AMNT OF GREEN BILE OUTPUT NOTED IN TUBE. DALTON PATENT/ DRAINING CLEAR YELLOW URINE. SKIN CONDITION OVERALL CDI. WILL CONTINUE TO MONITOR & UPDATE NEEDED.
--- NOTE | 2020-07-04 07:24 | NUR ---
SPOKE WITH STAFF MEMBER AT [facility]. THEY STATE THE PT HAD FILLED OUT AN UPDATED POLST FORM WITH HIS PCP DR SAIMA MICHAEL LAST WEEK, BUT THE FACILITY HAS NOT RECEIVED UPDATED FORM YET.
[2020-07-04 07:32] LABS: Alanine Aminotransfer (ALT/SGP 14 U/L (12-78); Albumin, Blood 2.6 g/dL (3.4-5.0); Albumin/Globulin Ratio 0.7 (0.8-1.8); Alk Phos 96 U/L (50-136); Anion Gap 5 mmol/L (6-16); Aspartate Aminotrans (AST/SGOT 23 U/L (12-37); Bilirubin, Total 0.4 mg/dL (0.1-1.0); Blood Urea Nitrogen 8 mg/dL (8-24); Bun/Creatinine Ratio 16.7 (12.0-20.0); CO2, Blood 29 mmol/L (21-32); CPK Creatine Kinase 324 U/L (39-308); Calcium, Blood 8.8 mg/dL (8.5-10.1); Chloride, Blood 103 mmol/L (98-108); Creatinine, Blood 0.48 mg/dL (0.60-1.20); Globulin, Blood 3.5 g/dL (2.2-4.0); Glomerular Filtration Rate >60 (60-); Glucose, Blood 109 mg/dL (70-99); Potassium, Blood 3.1 mmol/L (3.5-5.5); Sodium, Blood 137 mmol/L (136-145); Total Protein, Blood 6.1 g/dL (6.4-8.2); Troponin I 0.032 ng/mL (0.000-0.040)
[2020-07-04 07:46] LABS: Creatine Kinase MB 3.1 ng/mL (0.0-3.6)
--- NOTE | 2020-07-04 08:00 | NUR ---
DR MARIEE: CALL FROM PROVIDER THIS AM TO CLARIFY IF PT HAS ALREADY RECEIEVED K+ REPLETION BASED ON 0650 LABS, WHICH IS HAS NOT. ORDERS FOR KCL PLACED. SHE ALSO REQUESTS THAT SHE BE NOTIFIED ONCE CTA-PE STUDY HAS BEEN READ. PROVIDER AT BEDSIDE SHORTLY AFTER TO EVAL PT. UPDATED HER ON PT's FAMILY INFORMING STAFF THAT THE PT WISHES TO BE A DNR & HAD RECENTLY FILED A POLST W/ HIS PCP, SAIMA MOTA. THE POLST DIRECTORY HAS BEEN CALLED & THERE IS CURRENTLY NO POLST ON FILE FOR THIS PT. PROVIDER INFORMED THAT THE PT's SISTER HONG, WHO IS HIS DECISION MAKER, IS CONSIDERING WITHDRAWAL OF CARE & COMFORT CARE STATUS. NO OTHER CHANGES AT THIS TIME.
--- NOTE | 2020-07-04 09:00 | NUR ---
FAMILY UPDATE: ONE OF THE PT's SISTERS HAS BEEN ABLE TO GET PT's POLST FROM DR Martha MOTA's OFFICE & HAS BROUGHT A COPY OF POLST TO THE UNIT FOR PT's CHART. SHE STS THAT THE FAMILY IS STILL CONSIDERING COMFORT MEASURES & WITHDRAWAL OF CARE, BUT THAT THEY WOULD LIKE DR ROMAN's INPUT AFTER EVALUATION OF THE PT FIRST. THIS RN HAS CALLED DR MARIEE & NOTIFIED HER OF UPDATED POLST PER FAMILY REQUEST & DNR ORDERS HAVE BEEN PLACED. DR ROMAN TO BE NOTIFIED OF THESE CIRCUMSTANCES ON EVALUATION OF THE PT & FAMILY CAN BE CONTACTED TO COME SEE THE PT/ MAKE DECISIONS REGARDING CONTINUATION OF CARE.
--- NOTE | 2020-07-04 10:10 | NUR ---
SEDATION VACATION / SBT: PROPOFOL PLACED ON STANDBY FROM [id number]. DURING THIS TIME THE PT CONTINUES RESTING QUIETLY WHEN UNDISTURBED, BUT AWAKENS EASILY TO VERBAL STIMULUS & IS ABLE TO ANSWER YES/NO QUESTIONS W/ HEAD NODS. HE IS ALSO FOLLOWING COMMANDS DURING THIS TIME BUT IS PROFOUNDLY WEAK, WHICH HAS BEEN WORSENING PRIOR TO ADMISSION, PER PT's SISTER KRISTAN. DR ROMAN IN UNIT & HAS BEEN UPDATED ON PT's STATUS. HE WOULD LIKE TO COMPLETE SBT FOR THIS PT & AUDRA Kent RT, HAS BEEN NOTIFED. SEDATION FURTHER DECREASED & VENT SETTINGS CHANGED TO SPONT W/ PS 7, PEEP 5 & FIO2 35%. PT IS TOLERATING THIS WELL W/ ADEQUATE TVs > 600 & O2 SATS > 92%. HE CONTINUES TO REST QUIETLY & AWAKEN EASILY. PROVIDER AWARE.
--- NOTE | 2020-07-04 10:57 | NUR ---
PT's SISTER - KRISTAN: PHONE NUMBER:
--- NOTE | 2020-07-04 11:31 | NUR ---
DR ROMAN: PROVIDER AT BEDSIDE TO EVAL PT THIS AM. ALBUMIN & MIDODRINE HAVE BEEN ORDERED FOR CONTINUED HYPOTENSION W/ HOPES TO TITRATE LEVOPHED DOWN OR OFF ENTIRELY. SEDATION CONTINUES INFUSING AT LOW RATE & PT IS TOLERATING SPONTANEOUS MODE ON VENTILATOR WELL W/ ADEQUATE TV, RR & O2 SATS. HE NODS HEAD "YES" THAT HE IS CURRENTLTY COMFORTABLE & CONTINUES TO REST. DR ROMAN HAS ALSO SPOKEN W/ THE PT's SISTERS, HONG & KRISTAN, & HAS UPDATED THEM ON CURRENT POC. THEY ARE UNDERSTANDING OF THIS PLAN & UNDERSTAND THAT THE PT MAY POSSIBLY BE EXTUBATED THIS AFTERNOON. THEY PLAN TO CALL BACK AT AROUND 1400 THIS AFTERNOON TO DETERMINE IF THE PT IS STILL BREATHING WELL ON HIS OWN & IF HE WILL BE EXTUBATED. EITHER WAY, THE SISTERS DO PLAN TO COME VISIT THIS AFTERNOON & ARE AGREEABLE TO CURRENT POC.
--- NOTE | 2020-07-04 12:39 | NUR ---
Echocardiogram completed.
[2020-07-04 13:57] LABS: Magnesium, Blood 1.8 mg/dL (1.6-2.4); Potassium, Blood 3.5 mmol/L (3.5-5.5)
[2020-07-04 14:05] LABS: Troponin I 0.021 ng/mL (0.000-0.040)
--- NOTE | 2020-07-04 15:17 | NUR ---
UPDATE: PT's SISTERS, HONG & KRISTAN, HAVE BEEN AT BEDSIDE SINCE APPROX 1400. DR ROMAN HAS BEEN AT BEDSIDE TO DISCUSS THE PT's OPTIONS/ WISHES IN REGARDS TO CONTINUED AGGRESSIVE CARE. THE PT WISHES TO REMAIN INTUBATED FOR ANOTHER NIGHT, & THEN TO READDRESS THE POSSIBILITY OF EXTUBATION TOMORROW. DR ROMAN IS IN AGREEANCE W/ THIS PLAN, ARE BOTH OF THE PT's SISTERS. AUDRA Kent RT, HAS BEEN NOTIFIED & THE VENT HAS BEEN PLACED BACK ON AC MODE W/ SETTINGS 16/600/5/35%. THE PT HAS BEEN RESEDATED W/ PROPOFOL & IS TOLERATING THIS CHANGE WELL. HE APPEARS COMFORTABLE AT THIS TIME & IS RESTING QUIETLY. BOTH SISTERS HAVE STEPPED OUT FOR THE DAY BUT PLAN TO CALL THIS EVENING FOR AN UPDATE.
--- NOTE | 2020-07-04 18:37 | NUR ---
SHIFT SUMMARY: NO ACUTE CHANGES SINCE PRIOR UPDATES. PT REMAINS INTUBATED & SEDATED. HE CONTINUES TO AWAKEN EASILY TO VERBAL STIMULI & IS ABLE TO EXPRESS NEEDS THROUGH USE OF A COMMUNICATION BOARD TO SPELL WORDS OUT. CORE TEMP HAS BEEN SLOWLY INCREASING TODAY FOR TMAX OF 99.7, TYLENOL IS ORDERED PRN. LS REMAINS COARSE AT TIMES BUT IMPROVE W/ ETT SUCTIONING. PT CONTINUES HAVING LARGE AMNT THICK, COOK SECRETIONS THROUGH ETT. VENT SETTINGS: AC 16/600/5/35% W/ O2 SATS > 92%. MONITOR SHOWS SR W/ HR 80s, LEVOPHED DRIP HAS OVERALL BEEN TITRATED DOWN THIS SHIFT, CURRENTLY INFUSING AT 4 MCG/MIN. OGT REMAINS CLAMPED AFTER ESTHETICIAN MAKEUP ARTIST. DALTON PATENT/ DRAINING CLEAR, YELLOW URINE. SKIN CONDITION UNCHANGED & Q2H TURNS HAVE BEEN COMPLETED TO MAINTAIN SKIN INTEGRITY. WILL CONTINUE TO MONITOR & REPORT OFF TO ONCOMING RN.
--- NOTE | 2020-07-04 19:53 | NUR ---
ASSUMED CARE NOTE: ASSUMED CARE OF PT AT 1900, RECEVIED REPORT FROM JOSE RODRIGUEZ. PT IS ON VENT WITH SETTINGS AT AC16/600/5/35%, SPO2 ABOVE 90% RR AT 18 BREATHS PER MINUTE. WHEN SUCTIONED, PT PRODUCED SCANT AMOUNT OF WHITE THIN SECRETIONS. COARSE LUNG SOUNDS IN THE LOWER BASES. PT RESPONDS TO VERBAL STIMULI, CAN ANSWER QUESTIONS BY USING HEAD GESTURES. PT IS SEDATED WITH PROPOFOL, SEE FLOW SHEET. BP STABLE, WITH LEVOPHED RUNNING, WILL TITRATED TO MAINTAIN MAP ABOVE 65. BOWEL TONES HEARD IN ALL QUADRANTS. TEMP DALTON IS PATENT AND DRAINING TO GRAVITY. PT IS IN BILAT SOFT WRIST RESTRAINTS. WILL CONTINUE TO MONITOR PT T/O SHIFT.
[2020-07-05 01:23] LABS: Vancomycin, Trough 10.8 ug/mL (5.0-10.0)
--- NOTE | 2020-07-05 03:43 | NUR ---
UPDATE: PT'S LUNG SOUNDS ARE COARSE T/O REQUIERING FREQUENT SUCTION. RT AT BEDSIDE, LAVAGED SUCTION PROVIDED. PT COMMUNICATES WITH COMMUNICATION BOARD THAT HE IS NOT SEDATED ENOUGH. PROPOFOL TITRATED , SEE FLOW SHEET. LEVOPHED ON STANDBY.
[2020-07-05 04:12] LABS: BASOPHILS ABSOLUTE AUTO 0.01 K/mm3 (0.00-0.23); BASOPHILS PERCENT AUTO 0 % (0-2); EOSINOPHILS PERCENT AUTO 4 % (0-6); Hematocrit 31.2 % (37.0-53.0); Hemoglobin 10.3 g/dL (13.5-17.5); IMMATURE GRAN ABSOLUTE AUTO 0.04 K/mm3 (0.00-0.10); IMMATURE GRAN PERCENT AUTO 0 % (0-1); LYMPHOCYTES ABSOLUTE AUTO 1.32 K/mm3 (0.84-5.20); LYMPHOCYTES PERCENT AUTO 15 % (21-46); MONOCYTES ABSOLUTE AUTO 0.91 K/mm3 (0.16-1.47); MONOCYTES PERCENT AUTO 10 % (4-13); Mean Corpuscular HGB 32.6 pg (26.0-34.0); Mean Corpuscular Volume 99 fL (80-100); NEUTROPHILS ABSOLUTE AUTO 6.45 K/mm3 (1.96-9.15); NEUTROPHILS PERCENT AUTO 71 % (41-73); Platelet Count 168 K/mm3 (150-400); RDW Coefficient Variation 11.9 % (11.7-14.2); RDW Standard Deviation 43.1 fL (35.1-46.3); Red Blood Cell Count 3.16 M/mm3 (4.30-5.90); White Blood Cell Count 9.13 K/mm3 (4.00-11.30)
[2020-07-05 04:37] LABS: Alanine Aminotransfer (ALT/SGP 12 U/L (12-78); Albumin, Blood 2.9 g/dL (3.4-5.0); Alk Phos 70 U/L (50-136); Anion Gap 9 mmol/L (6-16); Aspartate Aminotrans (AST/SGOT 17 U/L (12-37); Bilirubin, Total 0.5 mg/dL (0.1-1.0); Blood Urea Nitrogen 6 mg/dL (8-24); Bun/Creatinine Ratio 11.3 (12.0-20.0); CO2, Blood 24 mmol/L (21-32); Calcium, Blood 8.8 mg/dL (8.5-10.1); Chloride, Blood 105 mmol/L (98-108); Creatinine, Blood 0.53 mg/dL (0.60-1.20); Glomerular Filtration Rate >60 (60-); Glucose, Blood 89 mg/dL (70-99); Magnesium, Blood 1.7 mg/dL (1.6-2.4); Phosphorus, Blood 3.1 mg/dL (2.5-4.9); Potassium, Blood 3.5 mmol/L (3.5-5.5); Sodium, Blood 138 mmol/L (136-145); Total Protein, Blood 5.9 g/dL (6.4-8.2)
--- NOTE | 2020-07-05 06:33 | NUR ---
SHIFT SUMMARY: SEE PREVIOUS NOTES. NO CHANGES TO VENT PT CONTINUES ON SAME SETTINGS. PT CONTINUES TO BE SEDATED WITH PROPOFOL, SEE FLOW SHEET. LUNG SOUNDS CONTINUE TO BE COARSE T/O, PT REQUIRES FREQUENT SUCTIONING. PT CONTINUES TO BE ON LEVOPHED, TITRATED T/O SHIFT TO MAINTAIN MAP ABOVE 65. PT HAS BEEN USING COMMUINICATION BOARD, TO COMMUNICATE NEEDS. PT GIVEN 25MCG OF FENTYNAL ONCE THIS SHIFT FOR PAIN. LOW URINE OUTPUT NOTED VIA DALTON 300ML THIS SHIFT, DENISE IN COLOR WITH SEDIMENT. NO BM THIS SHIFT. WILL CONTINUE TO MONITOR PT UNTIL REPORT IS GIVEN TO ONCOMING SHIFT.
--- NOTE | 2020-07-05 07:30 | NUR ---
ASSUMED CARE: REPORT RECEIVED FROM CESILIA Lane RN. ASSUMED CARE OF THIS PT AT APPROX 0700. ON ASSESSMENT, THE PT IS INTUBATED W/ 8.0 ETT, NOTED TO BE 29.0 CM AT THE TEETH. PT IS MINIMALLY SEDATED W/ PROPOFOL & AWAKENS EASILY TO VERBAL STIMULI. HE IS A&O TO ALL, FOLLOWS DIRECTION & EFFECTIVELY COMMUNICATES NEEDS THROUGH THE USE OF GESTURES & HEAD NODS. LS ARE COARSE T/O, VENT SETTINGS: AC 16/600/5/35%, O2 SATS > 92%. OCCASIONAL DESATS TO 87% NOTED W/ COUGHING & RESOLVED QUICKLY W/ ETT SUCTIONING. LARGE AMNTS THICK COOK/WHITE SPUTUM SUCTIONED THROUGH ETT. MONITOR SHOWS SR W/ HR 80s, BP STABLE W/ LEVOPHED DRIP TITRATION NOTED IN FLOWSHEET. PT HAS NO GI COMPLAINTS, OGT CLAMPED & BEING USED TO GIVE MEDS PER EMAR. DALTON PATENT/ DRAINING. SKIN OVERALL CDI. WILL CONTINUE TO MONITOR & UPDATE NEEDED.
--- NOTE | 2020-07-05 08:30 | NUR ---
DR MARIEE: PROVIDER AT BEDSIDE TO EVAL PT. POC REGARDING POSS EXTUBATION & PT's WISHES FOR CONTINUED AGGRESSIVE TX HAS BEEN DISCUSSED. NO NEW ORDERS OR CHANGES AT THIS TIME. CONTINUE POC PER COST ESTIMATING CLERK SERVICE & PT/FAMILY DECISIONS.
--- NOTE | 2020-07-05 10:30 | NUR ---
DR ROMAN: PROVIDER AT BEDSIDE TO EVAL PT & DISCUSS POC W/ PT & PT's SISTERS, ATUL. THE OPTIONS FOR CONTINUED AGGRESSIVE CARE VS EXTUBATION & TRANSITION TO COMFORT MEASURES HAVE BEEN DISCUSSED. THE PT DOES NOT YET WANT TO BE FULL COMFORT CARE/ HOSPICE, BUT HE WOULD LIKE TO HAVE THE ETT REMOVED W/ THE UNDERSTANDING THAT IT WILL NOT BE REPLACED BASED ON HIS WISHES. AUDRA Kent, RT, HAS BEEN NOTIFIED OF PENDING EXTUBATION & DR ROMAN WILL BE PLACING ORDERS FOR ATIVAN & ROXANOL FOR ANXIETY/AIR HUNGER THAT MAY OCCUR AT TIME OF EXTUBATION. ATUL REMAINS AT BEDSIDE & ARE IN AGREEANCE OF THIS PLAN. THEY ALSO MENTION THAT THEY DO NOT FEEL THE CT ABD/PELVIS, WHICH WAS SCHEDULED AN OUTPATIENT, IS NECESSARY AT THIS POINT IN THE PT's ILLNESS PROGRESSION.
--- NOTE | 2020-07-05 11:10 | NUR ---
EXTUBATION: EXTUBATION ORDERS HAVE BEEN PLACED PER DR ROMAN & THE PT WISHES TO HAVE HIS ETT REMOVED BRANYasmany Kent, RT, IS AT BEDSIDE WELL PALLIATIVE CARE RN, MC Robledo. EXTUBATION HAS BEEN COMPLETED AT 1110 & THE PT IS PLACED ON 3L NC W/ O2 SATS > 92%. HE IS ABLE TO EXPECTORATE SOME SECRETIONS AT THAT TIME & IS SPEAKING IN HUSHED TONES, ALTHOUGH ENCOURAGED TO REST. BOTH OF HIS SISTERS REMAIN AT THE BEDSIDE & HE CONTINUES TO BE CALM/COOPERATIVE.
--- NOTE | 2020-07-05 11:30 | NUR ---
Initial palliative care consult: Called to ICU 10 for extubation and to be supportive to Tin's two sisters who are currently at his bedside. Tin is awake and able to communicate with a communication board while he is still on the vent. Rec'd an update from nursing. Tin is a DNR with limited treatments. He filled out a POLST earlier this week (this POLST was not available and had not been signed by a provider prior to his cardiac arrest and intubation.) This POLST is now signed and on his chart. Tin wishes to be extubated. Sisters at bedside appear to have a good grasp on prognosis. This PC visit with supportive in nature. Answered some of their questions and encouraged them to visit but to encourage Tin to not do a lot of talking in the post extubation period. Will plan to come back later this afternoon to have a discussion re: goals of care with Tin and his sisters. All three (Tin and his sisters) thanked this nurse for the visit.
--- NOTE | 2020-07-05 15:45 | NUR ---
UPDATE: THIS RN TO BEDSIDE AT APPROX 1500 FOR PT HAVING DESATS TO APPROX 86%. O2 INCREASED FROM 3L NC TO 5L NC W/ NO IMPROVEMENT TO O2 SATS NOTED. THE PT VERBALIZES FEELING SOB & PT IS HAVING AUDIBLE RATTLING NOTED W/ RESPIRATIONS. AUDRA Kent RT, HAS BEEN CONTACTED & IS REQUESTED TO COME TO BEDSIDE W/ A NRB MASK, PT's O2 SATS HAVE CONTINUED TO DECLINE DESPITE INCREASING O2 TO 15L/MIN. O2 SATS 77% AT THE LOWEST NOTED READING. NC PLACED IN PT's MOUTH W/ IMPROVEMENT TO 84% & BREATHING TX STARTED AT THAT TIME. PT's O2 SATS HAVE GRADUALLY INCREASED OVER APPROX 10 MINS & ARE ONCE AGAIN > 92%. PT IS NOW MORE RELAXED & MAKES THE STATEMENT "THIS ISN'T GOING TO GET BETTER, IS IT?" HE ALSO ASKS THIS RN TO CALL HIS SISTERS & REQUEST THAT THEY COME BACK TO SEE HIM. HONG & KRISTAN HAVE BEEN CONTACTED, THEY WILL BE COMING BACK BRAN.
--- NOTE | 2020-07-05 17:44 | NUR ---
COMFORT CARE: PT's SISTERS ARE AT BEDSIDE & THE PT HAS TOLD THEM THAT HE WOULD LIKE TO PURSUE COMFORT MEASURES FROM THIS TIME ON. MC Robledo, PALLIATIVE CARE RN, HAS COME TO BEDSIDE & DISCUSSED THIS W/ THE PT & HIS SISTERS. THIS HAS ALSO BEEN DISCUSSED W/ DR ROMAN. MICHAEL BENTLEY, WILL BE PLACING COMFORT CARE ORDERS SHORTLY.
--- NOTE | 2020-07-05 18:00 | NUR ---
Called back to the ICU to meet with Tin and his sisters. He expresses his wishes to focus on comfort. He is aware that his condition will continue to decline. Spoke with Tin and his sisters re: starting comfort care in the hospital. They are interested in this. Discussed option of possibility of discharge home with hospice if he does not rapidly decline while here. Fiorella was tearful but stated that they are unable to take him home and care for him. Both sisters provided 24 hour care for a month for Tin and they are unable to do it again. Tin does not want to go back to [facility] as his sisters would not be able to visit him there. They are familiar with hospice as they were the caregivers for their mother for the last 5 months of her life. She from pancreatic cancer 6 months ago. Encouraged them to spend quality time together now. Tin may likley not surivive to be discharged from the hospital. Updated nursing and Dr. Valdes. Will place comfort care orders per Dr. Valdes's request. PC to continue to follow.
--- NOTE | 2020-07-05 18:43 | NUR ---
SHIFT SUMMARY: NO ACUTE CHANGES SINCE PRIOR UPDATES. PT IS CURRENTLY COMFORTABLE AFTER RECEIVING ROXANOL PER EMAR FOR INCREASING PAIN/ AIR HUNGER. AUDIBLE RATTLING IS NOTED ON LISTENING TO PT's REPIRATIONS. HE HAS BEEN ABLE TO CLEAR SOME OF THESE SECRETIONS BUT DOES HAVE A VERY WEAK COUGH. HE IS USING THE YANKAUR TO SELF-SUCTION. VS HAVE BEEN D/C'd R/T COMFORT MEASURES. PT DENIES HAVING ANY APPETITE BUT DOES TOLERATE SMALL SIPS OF WATER WELL. SHA PATENT/ DRAINING. WILL CONTINUE TO MONITOR & REPORT OFF TO ONCOMING RN.
--- NOTE | 2020-07-05 21:07 | NUR ---
ASSUMED CARE NOTE: ASSUMED CARE OF PT AT 1900, RECEVIED REPORT FROM JOSE RODRIGUEZ. PT IS ALERT AND ORIENTEDx4, ABLE TO COMMUNICATE NEEDS. PT ON 2L 10L OF 02 VIA HIGH-FLOW NASAL CANNULA FOR COMFORT. PT IN COMFORT MEASURES. PT STS HE IS HAVING INCREASED AIR HUNGER AND PAIN T/O, MEDICATIONS GIVEN PER EMAR. PHARMACOLOGICAL INTERVENTIONS GIVEN FOR INCREASED SECTRETIONS. SUCTION AT BEDSIDE. PT DENIES NAUSEA AT THIS TIME. 1999: PT STS PUSHED ON HIS CALL LIGHT, STS HE IS HAVING INCREASED AIRHUNGER. PT UNABLE TO TAKE DEEP BREATH. MEDS GIVEN PER EMAR. WHEN ASKED IF HE WANTED TO HAVE HIS SISTERS CALLED TO BEDSIDE, PT STS "NO" 2021: TIME OF 2021, FAMILY NOTIFED. SISTER HONG STS " WE DO NOT WANT TO COME IN AT THIS TIME" . CHARGE NURSE MICHELLE NOTIFED PHYSICANS AND DOING FINAL DISCHARGE 2099: PT CLEANED AND YELLOW GOWN AND ATTENDS PLACED. AWAITING FOR HOME TO AUTO STRIPER PT.
== END 2020-07-05 20:22 | DRG 871 ==
LOC: ER 21:58 → ICUW 23:06 → ER 07-04 00:31 → ICUW 07-04 00:45
PROVIDERS: Emergency Medicine; Internal Medicine; ADMIT Internal Medicine
PROC: 5A2204Z Restoration of Cardiac Rhythm, Single (ICD-10-PCS; principal; 2020-07-03)
PROC: 0BH18EZ Insertion of Endotracheal Airway into Trachea, Via Natural or Artificial Opening Endoscopic (ICD-10-PCS; 2020-07-03)
PROC: 5A1945Z Respiratory Ventilation, 24-96 Consecutive Hours (ICD-10-PCS; 2020-07-03)
PROC: 3E02340 Introduction of Influenza Vaccine into Muscle, Percutaneous Approach (ICD-10-PCS; 2020-07-03)
PROC: 3E043XZ Introduction of Vasopressor into Central Vein, Percutaneous Approach (ICD-10-PCS; 2020-07-03)
PROC: 5A12012 Performance of Cardiac Output, Single, Manual (ICD-10-PCS; 2020-07-05)
DX: A41.9 Sepsis, unspecified organism (principal); J96.01 Acute respiratory failure with hypoxia; R65.21 Severe sepsis with septic shock; J69.0 Pneumonitis due to inhalation of food and vomit; E87.2 Acidosis; I49.01 Ventricular fibrillation; I46.2 Cardiac arrest due to underlying cardiac condition; F17.210 Nicotine dependence, cigarettes, uncomplicated; Z51.5 Encounter for palliative care; Z20.828 Contact with and (suspected) exposure to other viral communicable diseases; E86.0 Dehydration; Z66 Do not resuscitate; Z23 Encounter for immunization; G62.1 Alcoholic polyneuropathy; Z78.1 Physical restraint status; J44.9 Chronic obstructive pulmonary disease, unspecified; F10.20 Alcohol dependence, uncomplicated
CPT/HCPCS: 0241U; 31500; 31720; 36415; 36556; 36600; 51702; 71045; 71260; 80047; 80053; 80202; 81003; 82550; 82553; 82803; 83735; 83880; 84100; 84132; 84484; 85014; 85025; 85379; 85384; 85610; 87070; 87205; 92950; 93005; 93010; 93306; 94002; 94003; 94640; 96365-59; 96367-59; 96375; 96375-59; 96376; 99291-25; 99292; C1751; G0008; J0282; J0330; J1650; J1956; J2060; J2250; J2543; J2704; J3010; J3370; J3475; J3480; J7030; J7050; J7060; P9046; Q2038; Q9967

== ENCOUNTER → 2020-07-03 | Outpatient (CLI) | payer OTHER ==
[2020-07-03 20:35] LABS: Hematocrit 42.7 % (37.0-53.0); Hemoglobin 14.6 g/dL (13.5-17.5); Mean Corpuscular HGB 33.3 pg (26.0-34.0); Mean Corpuscular HGB Conc 34.2 g/dL (31.5-36.5); Mean Corpuscular Volume 98 fL (80-100); Mean Platelet Volume 10.9 fL (9.1-12.4); Platelet Count 205 K/mm3 (150-400); RDW Coefficient Variation 11.6 % (11.7-14.2); Red Blood Cell Count 4.38 M/mm3 (4.30-5.90); White Blood Cell Count 13.65 K/mm3 (4.00-11.30)
[2020-07-03 20:44] LABS: Anion Gap 7 mmol/L (6-16); Blood Urea Nitrogen 10 mg/dL (8-24); Bun/Creatinine Ratio 16.4 (12.0-20.0); CO2, Blood 29 mmol/L (21-32); Calcium, Blood 10.1 mg/dL (8.5-10.1); Chloride, Blood 95 mmol/L (98-108); Creatinine, Blood 0.61 mg/dL (0.60-1.20); Glomerular Filtration Rate >60 (60-); Glucose, Blood 123 mg/dL (70-99); Sodium, Blood 131 mmol/L (136-145)
== END | disposition home or self-care (01) ==
LOC: EDSTATUS 09:23 → LAB UVN 18:35
PROVIDERS: Family Medicine
DX: J18.9 Pneumonia, unspecified organism (principal); R41.0 Disorientation, unspecified; R06.02 Shortness of breath
CPT/HCPCS: 80048; 85027